=== PATIENT | female | born 1950 | race Caucasian/White ===

== ENCOUNTER 2017-11-27 00:06 | Inpatient (IN) | payer MEDICARE, OTHER ==
--- NOTE | 2017-11-26 12:24 | LEVENE H&P ---
DATE OF ADMISSION: November 27, 2017 IDENTIFICATION/CHIEF COMPLAINT The patient is a 67]-year-old woman with a chief complaint of right hip pain. HISTORY OF PRESENT ILLNESS Lizet has a longstanding history of right hip arthritis, progressively painful and debilitating and refractor to conservative care. Surgery is indicated to relieve symptoms after failure of nonoperative measures. PAST MEDICAL HISTORY 1. Hypothyroidism. 2. Hypertension. 3. Mild COPD, requiring nighttime oxygen use. PAST SURGICAL HISTORY 1. Left knee replacement. 2. Eye surgery. ALLERGIES PENICILLIN (causing severe hives and breathing difficulty) and SULFA DRUGS. CURRENT MEDICATIONS 1. Levothyroxine 75 micrograms every day. 2. Lisinopril 40 mg every day. 3. Timolol drops morning and afternoon. 4. Lumigan drops at bedtime. FAMILY HISTORY Father, brother and sister with heart disease. Mother, sister and aunts with cancer. SOCIAL HISTORY Negative for tobacco and alcohol use. REVIEW OF SYSTEMS Negative. PHYSICAL EXAMINATION GENERAL: This is a healthy female. HEENT: Normocephalic, atraumatic. NECK: Supple. LUNGS: Clear. HEART: Regular. ABDOMEN: Soft. ORTHOPEDIC EXAMINATION The right hip is stiff with limits of rotation. She has normal hip girdle strength. Skin envelope is intact. Calves are nontender. Neurovascular function is intact. RADIOGRAPHS Radiographs demonstrate end-stage hip arthritis. ASSESSMENT Right hip end-stage degenerative joint disease (DJD), progressively painful and debilitating, refractory to conservative care. PLAN Per patient's request, we will proceed with total hip arthroplasty. The nature of the procedure, the risks, benefits, the anticipated rehabilitative course were reviewed. Risks of the procedure include but are not limited to , major medical or anesthetic complication, infection, neurovascular injury, blood transfusion, stiffness, scarring, fracture, tendon rupture, leg length discrepancy, instability, implant loosening, migration or failure, need for additional surgery and other unforeseen. She understands and wishes to proceed. A signed permit is placed in the chart. No guarantees are given or implied. OBED
[2017-11-26 15:40] LABS: PLATELET COUNT, AUTOMATED 224 K/uL (150-450)
[2017-11-26 15:49] LABS: INR 0.95
[2017-11-27] VITALS (16 sets, daily range): BP systolic 99–150; BP diastolic 52–109
[~2017-11-27] VITALS: Ht 167.6 cm; Wt 103.4 kg
[~2017-11-27 00:06] MED LIST: BIMA2.5D5 OP; LEVO75TA73 PO; LISI-374 PO; TIMO5DRO3 OP
[2017-11-27] MEDS ORDERED: ACETAMINOPHEN 500 MG TAB PO ONE (06:15)
[2017-11-27] MEDS ORDERED: FAMOTIDINE 20 MG TAB PO ONE (06:15)
[2017-11-27] MEDS ORDERED: NORMOSOL R SOLN(*) 1000 ML BAG 1,000 ML IV PRN ×2 (06:15→09:50)
[2017-11-27] MEDS ORDERED: LIDOCAINE/SOD BICARB 8.4% SYR ID ONE (06:15)
[2017-11-27] MEDS ORDERED: cloNIDine EPIDUR INJ 100MCG/ML 40 MCG, ROPIVACAINE 0.5% 20 ML VIAL 25 ML, EPINEPHrine H... INJ ONE (06:15)
[2017-11-27] MEDS ORDERED: CLINDAMYCIN(*) 900 MG/NS 50 ML 50 ML IVPB ONE (06:15)
[2017-11-27] MEDS ORDERED: TRANEXAMIC AC 1000 MG/10ML SDV 1,000 MG in DEXTROSE 5% 50 ML BAG 50 ML IV ONE (06:15)
[2017-11-27] MEDS ORDERED: MIDAZOLAM 2 MG/2 ML VIAL IVP PRN (06:15)
[2017-11-27] MEDS ORDERED: PREGABALIN 150 MG CAPSULE PO ONE (06:15)
[2017-11-27] MEDS ORDERED: fentaNYL CITR 100 MCG/2 ML AMP ONE (06:45)
[2017-11-27] MEDS ORDERED: PROPOFOL EMUL(*) 10MG/ML 20 ML 80 ML ONE (06:46)
[2017-11-27] MEDS ORDERED: ONDANSETRON 4 MG/2 ML VIAL ONE (06:46)
[2017-11-27] MEDS ORDERED: DEXAMETHASONE SOD PHOS 10MG/ML ONE (06:46)
[2017-11-27] MEDS ORDERED: LIDOCAINE MPF 1% 5 ML VIAL ONE (06:46)
[2017-11-27] MEDS ORDERED: LIDOCAINE 2% JELLY 5 ML TUBE ONE (07:01)
[2017-11-27] MEDS ORDERED: KETAMINE HCL 200 MG/20 ML MDV ONE (07:02)
[2017-11-27] MEDS ORDERED: NS 0.9% 20 ML SDV 20 ML ONE (07:32)
[2017-11-27] MEDS ORDERED: PROPOFOL EMUL(*) 10MG/ML 20 ML 60 ML ONE (07:49)
[2017-11-27] MEDS ORDERED: VASOPRESSIN 20 UNIT/ML VIAL ONE (08:13)
[2017-11-27] MEDS ORDERED: VANCOMYCIN 1 GM VIAL ONE (08:30)
[2017-11-27] MEDS ORDERED: PROMETHAZINE 25 MG/ML 1 ML AMP IVP PRN (09:50)
[2017-11-27] MEDS ORDERED: BENZOCAINE/MENTHOL 1 EACH LOZG PO PRN (09:50)
[2017-11-27] MEDS ORDERED: MAGNESIUM HYDROXIDE* 30ML UDCP PO PRN (09:50)
[2017-11-27] MEDS ORDERED: ACETAMINOPHEN 325 MG TAB PO PRN (09:50)
[2017-11-27] MEDS ORDERED: BISACODYL 10 MG SUPP PR PRN (09:50)
[2017-11-27] MEDS ORDERED: diphenhydrAMINE 25 MG CAP PO PRN (09:50)
[2017-11-27] MEDS ORDERED: diphenhydrAMINE 50 MG/ML VIAL IVP PRN (09:50)
[2017-11-27] MEDS ORDERED: FLUSH 10 ML SYR IVP PRN (09:50)
[2017-11-27] MEDS ORDERED: ZOLPIDEM TARTRATE 5 MG TAB PO PRN (09:50)
--- NOTE | 2017-11-27 11:28 | Hospitalist Consultation ---
History of Present Illness Requesting Physician Dr. Villegas Reason for Consult Hypertension, Hypothyroidism Chief Complaint s/p right total hip replacement History of Present Illness She was admitted s/p right total hip replacement. It is reported the surgery went well and without complication. History Problems: (1) COPD (chronic obstructive pulmonary disease) Status: Chronic (2) Hypertension Status: Chronic (3) Hypothyroidism Status: Chronic (4) Glaucoma Status: Chronic Home Meds Reported Medications Bimatoprost (LUMIGAN) 2.5 Ml Drops, 1 GTT OP HS 11/20/17 Timolol (BETIMOL) 5 Ml Drops, 1 GTT OP BID 11/20/17 Levothyroxine Sodium (LEVOTHYROXINE SODIUM) 75 Mcg Tablet, 75 MCG PO QDAY, TAB 11/20/17 Lisinopril (LISINOPRIL) 40 Mg Tablet, 40 MG PO QDAY, TAB 11/20/17 Allergies: Coded Allergies: Penicillins (Verified Allergy, Intermediate, HIVES, 11/20/17) Sulfa (Sulfonamide Antibiotics) (Verified Allergy, Intermediate, HIVES, 02/28) Patient History: FH: breast cancer MOTHER BROTHER OR SISTER FH: heart disease FATHER BROTHER OR SISTER BROTHER OR SISTER FH: ovarian cancer BROTHER OR SISTER Hx Smoking: Yes (SMOKED 1/2 PPD FOR 20YRS) Smoking Status: Former Smoker When Quit Tobacco?: 1989 Caffeine Intake: Tea Caffeine/Cups Per Day: 1.5 CUPS/DAY Hx Alcohol Use: No Hx Substance Use Disorder: No Social Drug Use: Never Review of Systems All Systems Reviewed/Normal: Yes, Except as Noted Exam Vital Signs Vital Signs Date Time Temp Pulse Resp B/P (MAP) Pulse Ox O2 Delivery O2 Flow Rate FiO2 11/27/17 11:06 96 Nasal Cannula 2.0 11/27/17 10:49 97.6 16 104/81 (89) 11/27/17 10:45 66 General Appearance: Alert, Awake, No Acute Distress, Afebrile Neuro: No Gross deficits Cardiovascular: Regular Rate and Rhythm Respiratory: No Respiratory Distress, Clear to Auscultation Extremities: Perfused Psych: Alert & Oriented X3, Appropriate Mood & Affect Medical Decision Making Data Points Result Diagram: 11/26/17 1510 Assessment and Plan Problems: (1) Status post total hip replacement, right Status: Acute Assessment & Plan: Followed by Dr. Levene. She will be placed on Aspirin 325mg daily for DVT prophylaxis. She has no history of DVT or PE. (2) Hypertension Status: Chronic Assessment & Plan: She is on chronic treatment with Lisinopril. This was restarted with hold parameters. (3) Hypothyroidism Status: Chronic Assessment & Plan: She is on chronic treatment with Levothyroxine. (4) COPD (chronic obstructive pulmonary disease) Status: Chronic Assessment & Plan: She wears oxygen at night. She does not require inhalers. (5) Glaucoma Status: Chronic Assessment & Plan: She uses Timolol and Lumigan daily. Venous Thromboembolism Antithrombotics Is Pt On Any Antithrombotics?: No CORNELL GONZALEZP Nov 27, 2017 11:28
--- NOTE | 2017-11-27 11:28 | RADIOLOGY IMAGING REPORT ---
FACILITY: [facility] PATIENT NAME: Antoinette yWnne : 1950 MR: [id number] V: [id number] EXAM DATE: ORDERING PHYSICIAN: GLENN SORIA TECHNOLOGIST: Location: [facility] Patient: Antoinette Wynne : 1950 Visit/Account:[id number] Date of Sevice: 11/27/2017 PELVIS History: Pelvic pain. Comparison study: None. Findings: There is diffuse osteopenia. There has been a prior right total hip replacement. The left hip shows no findings of a fracture. There are only minimal findings of joint space narrowi ng. There are minimal degenerative changes involve the sacroiliac joints and pubic symphysis. IMPRESSION: 1. Osteopenia without fracture. 2. Status post right total hip replacement. 3. Unremarkable left hip with only minimal findings of joint space narrowing. Report Dictated By: Marbin Burt MD at 11/27/2017 11:24 AM Report E-Signed By: Marbin Burt MD at 11/27/2017 11:24 AM WSN:[email or web address]
[2017-11-27] MEDS: APAP/HYDROCODONE 325/7.5 TAB PO PRN ×2 (14:14→21:07)
[2017-11-27] MEDS: CLINDAMYCIN(*) 900 MG/NS 50 ML 50 ML IVPB SCH ×2 (14:34→23:02)
--- NOTE | 2017-11-27 14:38 | OPERATIVE REPORT 1 ---
EVENT DATE: November 27, 2017 SURGEON: Jose Cruz Villegas MD ANESTHESIOLOGIST: Tom Frias MD ANESTHESIA: General plus spinal. ENROBER TENDER: IZA Alcantar PREOPERATIVE DIAGNOSIS Right hip degenerative joint disease. POSTOPERATIVE DIAGNOSIS Right hip degenerative joint disease. PROCEDURE PERFORMED Right total hip arthroplasty. ESTIMATED BLOOD LOSS 400 mL DRAINS None. SPECIMENS None. COMPLICATIONS None apparent. IMPLANTS USED Biomonitor system with a Trident PSL cluster acetabular shell 52 mm, Trident X3 zero-degree poly insert to accommodate a 36 mm head, a SecurFit Max size 9, 132- degree neck angle hip stem, and a Biolox Delta Ceramic C-Taper femoral head - 2.5 neck length. INDICATIONS Antoinette has intractable pain related to end-stage hip arthritis. Surgery is indicated to relieve symptoms after failure of nonoperative measures. DESCRIPTION OF PROCEDURE Patient was taken to the operating room, placed supine on the operating table. General anesthesia induced after spinal block is administered by the anesthesiologist. Antibiotics and TXA are administered IV. Patient is positioned in the left lateral decubitus on a well-padded pegboard. Pelvis is secured in a vertical position. All bony prominences and superficial nerves are well padded. The right hip girdle and lower extremity are prepped and draped in the usual sterile fashion for hip arthroplasty. A standard posterolateral approach is made, carried down through the skin and subcutaneous tissue down to the deep fascia. Fascia is incised over the tip of the trochanter, extended distally in line with the femur, proximally in line with the harrison fibers. Harrison fibers are split bluntly. Trochanteric bursa is excised. Interval between the abductor and external rotator is identified. Abductor mechanism protected with a blunt Hohmann. An L capsulotomy/tenotomy is made with the horizontal limb above the piriformis, releasing the external rotators and capsule off the posterior aspect of the femur. These are tagged for later anatomic reattachment. The femoral head is dislocated. End-stage arthritic change is noted. A 1.5 cm neck cut is made consistent with preoperative templating. Femoral head is extracted. Femur is translocated anteriorly. Yaneli-acetabular retractors are placed with the tips down on bone. Labrum and pulvinar are excised. A 44 mm reamer is used to medialize through the true medial wall of the acetabulum. This is expanded in 2 mm increments up to 52 where nice rim contact is obtained. Trial is performed and fits well. Surface is lavaged, and the actual shell is impacted in approximately 45 degrees of lateral opening and 15 to 20 degrees of anteversion using the extracorporeal guide, internal bony landmarks, and transverse acetabular ligament to guide socket placement. Rock-solid fixation is achieved. No adjuvant fixation is felt to be needed. The shell is lavaged, and the liner is impacted into the shell. Attention is turned to femoral preparation. The superior neck is resected with a cookie cutter. A Charterrnaceey awl finds the canal. Reaming is performed up to 9 where good endosteal contact is obtained. Broaching starts with 7 and works up to 9, taking care to lateralize to avoid varus following the [place] anteversion of the calcar to about 12 to 15 degrees. The 9 broach has solid fit and fill. Trial reduction is performed. Good episcopal of the limb length and stability are achievable. The broach is extracted. Surface is lavaged. The actual stem is impacted and sits at the same height. Trial reduction performed with various neck lengths. The -2.5 is felt to be optimal for episcopal of the limb length and stability. Camp taper is lavaged and dried, and the Biolox head is impacted onto the Camp taper. Joint is reduced. The tenotomy/capsulotomy is repaired anatomically through drill holes through the posterolateral femur with #2 Vicryl. Deep fascia closed distally with #2 Ethibond, proximally with #2 Vicryl. Subcutaneous tissue is lavaged, hemostasis assured. Derm is closed with 3-0 Vicryl, skin with surgical shayla, Xeroform and 4 x 4's in a dry, sterile dressing, and a hip wrap. Patient is rolled supine. Abduction pillow is placed. She is awakened from anesthesia and taken to the recovery room in stable condition having tolerated the procedure well. Plan is for standard [facility] rehab protocol, posterior hip precautions, weightbearing as tolerated. [facility]
[2017-11-27] MEDS: DIAZEPAM 5 MG TAB PO PRN (15:52)
[2017-11-27] MEDS: IBUPROFEN 800 MG TAB PO SCH (18:45)
[2017-11-27] MEDS: LISINOPRIL 20 MG TAB PO SCH (20:33)
[2017-11-28] MEDS: IBUPROFEN 800 MG TAB PO SCH ×3 (01:00→17:28)
[2017-11-28] MEDS: DIAZEPAM 5 MG TAB PO PRN ×2 (03:14→15:38)
[2017-11-28 03:17] VITALS: BP 109/72
[2017-11-28] MEDS: LEVOTHYROXINE SOD 0.075 MG TAB PO SCH (06:15)
[2017-11-28] MEDS: APAP/HYDROCODONE 325/7.5 TAB PO PRN ×4 (06:15→22:42)
[2017-11-28] MEDS: CLINDAMYCIN(*) 900 MG/NS 50 ML 50 ML IVPB SCH (06:16)
[2017-11-28 08:13] VITALS: BP 110/76
[2017-11-28] MEDS: ASPIRIN 325 MG TAB PO SCH (10:09)
[2017-11-28 10:18] VITALS: Ht 167.6 cm; Wt 103.4 kg
--- NOTE | 2017-11-28 11:58 | Hospitalist Progress Note ---
Subjective Progress Notes Subjective She was admitted s/p hip replacement. She had no acute events overnight. Patient Complains of: Cardiovascular: No: Chest Pain Respiratory: No: Shortness of Breath Physical Exam Vital Signs Date Time Temp Pulse Resp B/P (MAP) Pulse Ox O2 Delivery O2 Flow Rate FiO2 11/28/17 08:13 97.7 63 14 110/76 (87) 94 Nasal Cannula 1.0 Intake and Output 11/29/17 07:00 Intake Total 240 ml Balance 240 ml Intake Oral 240 ml General Appearance: Alert, Awake, No Acute Distress, Afebrile Neuro: No Gross deficits Cardiovascular: Regular Rate and Rhythm Respiratory: No Respiratory Distress, Clear to Auscultation Psych: Alert & Oriented X3, Appropriate Mood & Affect Result Diagram: 11/26/17 1510 Assessment and Plan Problems: (1) Status post total hip replacement, right Status: Acute Assessment & Plan: Followed by Dr. Villegas. She will be placed on Aspirin 325mg daily for DVT prophylaxis. She has no history of DVT or PE. (2) Hypertension Status: Chronic Assessment & Plan: She is on chronic treatment with Lisinopril. This was restarted with hold parameters. (3) Hypothyroidism Status: Chronic Assessment & Plan: She is on chronic treatment with Levothyroxine. (4) COPD (chronic obstructive pulmonary disease) Status: Chronic Assessment & Plan: She wears oxygen at night. She does not require inhalers. (5) Glaucoma Status: Chronic Assessment & Plan: She uses Timolol and Lumigan daily. Exam Sepsis Risk: No Definite Risk CORNELL GONZALEZ [facility] Nov 28, 2017 11:58
[2017-11-28 15:35] VITALS: BP 99/56
[2017-11-28 19:29] VITALS: BP 100/63
[2017-11-28] MEDS: LISINOPRIL 20 MG TAB PO SCH (21:00)
[2017-11-28 22:36] VITALS: BP 107/80
[2017-11-29] MEDS: IBUPROFEN 800 MG TAB PO SCH ×2 (01:07→09:34)
[2017-11-29 02:33] VITALS: BP 107/73
[2017-11-29] MEDS: APAP/HYDROCODONE 325/7.5 TAB PO PRN ×2 (02:39→11:04)
[2017-11-29] MEDS: LEVOTHYROXINE SOD 0.075 MG TAB PO SCH (05:33)
[2017-11-29] MEDS ORDERED: ASPI-757 PO (08:29)
[2017-11-29 09:32] VITALS: BP 113/71
[2017-11-29] MEDS: ASPIRIN 325 MG TAB PO SCH (09:35)
[2017-11-29] MEDS ORDERED: HYDR-4308 PO (09:38)
--- NOTE | 2017-11-29 11:36 | Hospitalist Progress Note ---
Subjective Progress Notes Subjective She has no concerns this morning. She had no acute events overnight. Patient Complains of: Cardiovascular: No: Chest Pain Respiratory: No: Shortness of Breath Physical Exam Vital Signs Date Time Temp Pulse Resp B/P (MAP) Pulse Ox O2 Delivery O2 Flow Rate FiO2 11/29/17 10:00 93 Nasal Cannula 1.0 11/29/17 09:32 97.9 74 113/71 (85) 11/29/17 02:33 16 Intake and Output 11/30/17 00:59 Intake Total 200 ml Balance 200 ml Intake Oral 200 ml # Voids 2 General Appearance: Alert, Awake, No Acute Distress Neuro: No Gross deficits Cardiovascular: Regular Rate and Rhythm Respiratory: No Respiratory Distress, Clear to Auscultation Psych: Alert & Oriented X3, Appropriate Mood & Affect Result Diagram: 11/26/17 1510 Assessment and Plan Problems: (1) Status post total hip replacement, right Status: Acute Assessment & Plan: Followed by Dr. Villegas. She will be placed on Aspirin 325mg daily for DVT prophylaxis. She has no history of DVT or PE. (2) Hypertension Status: Chronic Assessment & Plan: She is on chronic treatment with Lisinopril. This was restarted with hold parameters. (3) Hypothyroidism Status: Chronic Assessment & Plan: She is on chronic treatment with Levothyroxine. (4) COPD (chronic obstructive pulmonary disease) Status: Chronic Assessment & Plan: She wears oxygen at night. She does not require inhalers. (5) Glaucoma Status: Chronic Assessment & Plan: She uses Timolol and Lumigan daily. Exam Sepsis Risk: No Definite Risk CORNELL GONZALEZ [employer] Nov 29, 2017 11:36
== END 2017-11-29 11:24 | disposition home or self-care (01) | DRG 470 ==
LOC: OR 00:06 → MED 10:45
PROVIDERS: ADMIT Orthopaedic Surgery; ATTEND Orthopaedic Surgery
PROC: 0SR904A Replacement of Right Hip Joint with Ceramic on Polyethylene Synthetic Substitute, Uncemented, Open Approach (ICD-10-PCS; principal; 2017-11-27 07:15)
DX: M16.11 Unilateral primary osteoarthritis, right hip (principal); I10 Essential (primary) hypertension; Z96.642 Presence of left artificial hip joint; G47.33 Obstructive sleep apnea (adult) (pediatric); Z88.0 Allergy status to penicillin; E03.9 Hypothyroidism, unspecified; J44.9 Chronic obstructive pulmonary disease, unspecified; H40.9 Unspecified glaucoma; Z99.81 Dependence on supplemental oxygen; Z88.2 Allergy status to sulfonamides; Z87.891 Personal history of nicotine dependence
CPT/HCPCS: 36415; 72170; 85025; 85610; 86850; 86900; 86901; 97161; 97165; C1776; J1100; J2001; J2250; J2405; J2550; J2704; J3010; J3370; J3490; J7050; J7060

== ENCOUNTER 2018-04-30 01:26 | Inpatient (IN) | payer MEDICARE, OTHER ==
--- NOTE | 2018-04-29 12:20 | LEVENE H&P ---
DATE OF ADMISSION: April 30, 2018 IDENTIFICATION/CHIEF COMPLAINT The patient is a 67-year-old woman with a chief complaint of right knee pain. HISTORY OF PRESENT ILLNESS The patient has a long standing history of knee arthritis, progressively painful and debilitating, refractory to conservative care. Surgery is indicated to relieve pain after failure of nonoperative measures. PAST MEDICAL HISTORY 1. Hypertension well controlled on medication. 2. Hypothyroidism. 3. COPD with night time oxygen dependence. PAST SURGICAL HISTORY 1. Left knee replacement. 2. Right hip replacement. ALLERGIES SULFA PENICILLIN both lead to hives. She has no latex allergy. CURRENT MEDICATIONS 1. Levothyroxine 70 mcg p.o. q day. 2. Lisinopril 40 mg p.o. q nightly. 3. Timolol t.i.d. eye drops. 4. Lumigan 1 before bed eye drops. FAMILY HISTORY Non-contributory. SOCIAL HISTORY Negative for tobacco and alcohol use. REVIEW OF SYSTEMS Notable for glaucoma PHYSICAL EXAMINATION GENERAL: This is a healthy female. HEENT: Normocephalic, atraumatic. NECK: Supple. LUNGS: Clear to auscultation bilaterally. HEART: Regular rate and rhythm. ABDOMEN: Soft. ORTHOPEDIC EXAMINATION The right knee has crepitus, effusion is present. She is stiff at the end range. Extensor function is good. Knee is grossly stable. RADIOGRAPHS Demonstrate endstage knee arthritis. ASSESSMENT Right knee degenerative joint disease refractory for conservative. PLAN Per patient request, we are going to proceed with total knee arthroplasty. The risks, benefits of nonoperative alternatives reviewed. Risks include but are not limited to , major medical or anesthetic complication, infection, neurovascular injury, blood transfusion, stiffness, scarring, fracture, tendon rupture, instability, implant loosening, migration or failure, persistent or recurrent pain or symptoms, need for additional surgery and other unforeseen. She understands and wishes to proceed. A signed permit is placed in the chart. No guarantees are given or implied. OBED
[2018-04-29 13:58] LABS: INR 0.98
[~2018-04-30] VITALS: Ht 165.1 cm; Wt 102.1 kg
[2018-04-30] VITALS (14 sets, daily range): BP systolic 92–153; BP diastolic 69–91
[~2018-04-30 01:26] MED LIST changes: +ASPI-757 PO; +ASPI81TA94 PO; +HYDR-654 PO
[2018-04-30] MEDS: NORMOSOL R SOLN(*) 1000 ML BAG 1,000 ML IV PRN ×2 (10:05→11:54)
[2018-04-30] MEDS ORDERED: APREPITANT 40 MG CAP PO ONE (10:35)
[2018-04-30] MEDS ORDERED: MIDAZOLAM 2 MG/2 ML VIAL IVP PRN (11:30)
[2018-04-30] MEDS ORDERED: CLINDAMYCIN(*) 900 MG/NS 50 ML 50 ML IVPB ONE (11:30)
[2018-04-30] MEDS ORDERED: FAMOTIDINE 20 MG TAB PO ONE (11:30)
[2018-04-30] MEDS ORDERED: LIDOCAINE/SOD BICARB 8.4% SYR ID ONE (11:30)
[2018-04-30] MEDS ORDERED: PREGABALIN 150 MG CAPSULE PO ONE (11:30)
[2018-04-30] MEDS ORDERED: ACETAMINOPHEN 500 MG TAB PO ONE (11:30)
[2018-04-30] MEDS ORDERED: fentaNYL CITR 100 MCG/2 ML AMP ONE (11:38)
[2018-04-30] MEDS ORDERED: ONDANSETRON 4 MG/2 ML VIAL ONE (11:39)
[2018-04-30] MEDS ORDERED: DEXAMETHASONE SOD PHOS 10MG/ML ONE (11:39)
[2018-04-30] MEDS ORDERED: PROPOFOL EMUL(*) 10MG/ML 20 ML 20 ML ONE (11:39)
[2018-04-30] MEDS ORDERED: LIDOCAINE MPF 1% 5 ML VIAL ONE (11:39)
[2018-04-30] MEDS ORDERED: KETAMINE HCL 200 MG/20 ML MDV ONE (11:41)
[2018-04-30] MEDS ORDERED: PROPOFOL(*)1000 MG/100 ML VIAL 100 ML ONE (12:08)
[2018-04-30] MEDS ORDERED: TRANEXAMIC AC 1000 MG/10ML SDV 1,000 MG in DEXTROSE 5% 50 ML BAG 50 ML IV ONE (12:30)
[2018-04-30] MEDS ORDERED: ROPIVACAINE/EPI/CLONIDINE/KET 50 ML SYRINGE INJ ONE (12:30)
[2018-04-30] MEDS ORDERED: VANCOMYCIN 1 GM VIAL ONE ×2 (12:49→13:38)
[2018-04-30] MEDS ORDERED: BISACODYL 10 MG SUPP PR PRN (16:00)
[2018-04-30] MEDS ORDERED: BENZOCAINE/MENTHOL 1 EACH LOZG PO PRN (16:00)
[2018-04-30] MEDS ORDERED: diphenhydrAMINE 50 MG/ML VIAL IVP PRN (16:00)
[2018-04-30] MEDS ORDERED: NORMOSOL R SOLN(*) 1000 ML BAG 1,000 ML IV PRN (16:00)
[2018-04-30] MEDS ORDERED: ACETAMINOPHEN 325 MG TAB PO PRN (16:00)
[2018-04-30] MEDS ORDERED: FLUSH 10 ML SYR IVP PRN (16:00)
[2018-04-30] MEDS ORDERED: ZOLPIDEM TARTRATE 5 MG TAB PO PRN (16:00)
[2018-04-30] MEDS ORDERED: PROMETHAZINE 25 MG/ML 1 ML AMP IVP PRN (16:00)
[2018-04-30] MEDS ORDERED: MAGNESIUM HYDROXIDE* 30ML UDCP PO PRN (16:00)
[2018-04-30] MEDS ORDERED: diphenhydrAMINE 25 MG CAP PO PRN (16:00)
[2018-04-30] MEDS: APAP/HYDROCODONE 325/7.5 TAB PO PRN ×2 (17:00→21:26)
--- NOTE | 2018-04-30 17:00 | RADIOLOGY IMAGING REPORT ---
[place] [facility] [place] Antoinette Wynne : 1950 MR: [id number] V: [id number] EXAM DATE: ORDERING PHYSICIAN: GLENN SORIA TECHNOLOGIST: [place] [facility] [place] Antoinette Wynne : 1950 Visit/Account:[id number] Date of Sevice: 04/30/2018 Exam type: KNEE LIMITED RIGHT History: POST OP PLACEMENT Comparison: None. Findings: Two views the right knee demonstrate a right knee arthroplasty in good anatomic alignment. Soft tiss ue gas and skin shayla project over the anterior aspect this postoperative knee IMPRESSION: 1. As above Report Dictated By: Hortencia Jo MD at 04/30/2018 4:51 PM Report E-Signed By: Hortencia Jo MD at 04/30/2018 4:56 PM WSN:[email or web address]
--- NOTE | 2018-04-30 17:01 | Hospitalist Consultation ---
History of Present Illness Requesting Physician Dr. Villegas Reason for Consult Medical Management Chief Complaint s/p right knee replacement History of Present Illness She was admitted s/p right knee replacement. It is reported the surgery went well and without complication. History Problems: (1) COPD (chronic obstructive pulmonary disease) Status: Chronic (2) Hypothyroidism Status: Chronic (3) Glaucoma Status: Chronic (4) Hypertension Status: Chronic Home Meds Reported Medications Aspirin (ASPIRIN) 81 Mg Tab.chew, 81 MG PO QDAY, TAB.CHEW 04/25/18 Bimatoprost (LUMIGAN) 2.5 Ml Drops, 1 GTT OP HS 11/20/17 Timolol (BETIMOL) 5 Ml Drops, 1 GTT OP BID 11/20/17 Levothyroxine Sodium (LEVOTHYROXINE SODIUM) 75 Mcg Tablet, 75 MCG PO QDAY, TAB 11/20/17 Lisinopril (LISINOPRIL) 40 Mg Tablet, 40 MG PO QDAY, TAB 11/20/17 Discontinued Reported Medications Hydrocodone Bit/Acetaminophen (NORCO 7.5-325 TABLET) 1 Each Tablet, 1 EACH PO Q4H PRN for PAIN, #50 11/29/17 Discontinued Scripts Aspirin (ASPIRIN) 325 Mg Tablet, 325 MG PO DAILY, #30 TAB Prov:CORNELL GONZALEZ Adrienne FOREST ECOLOGY PROFESSOR 11/29/17 Allergies: Coded Allergies: Penicillins (Verified Allergy, Intermediate, HIVES, 04/25/18) Sulfa (Sulfonamide Antibiotics) (Verified Allergy, Intermediate, HIVES, 04/25/18) Patient History: FH: breast cancer MOTHER BROTHER OR SISTER FH: heart disease FATHER BROTHER OR SISTER BROTHER OR SISTER FH: ovarian cancer BROTHER OR SISTER Hx Smoking: Yes (SMOKED 1/2 PPD FOR 20YRS) Smoking Status: Former Smoker When Quit Tobacco?: 1989 Caffeine Intake: Coffee, Tea, Soda Caffeine/Cups Per Day: 1.5 CUPS/DAY Hx Alcohol Use: No Hx Substance Use Disorder: No Social Drug Use: Never Review of Systems All Systems Reviewed/Normal: Yes, Except as Noted Exam Vital Signs Vital Signs Date Time Temp Pulse Resp B/P (MAP) Pulse Ox O2 Delivery O2 Flow Rate FiO2 04/30/18 16:00 58 12 98 04/30/18 11:00 97.8 153/91 (111) Room Air General Appearance: Alert, Awake, No Acute Distress, Afebrile Neuro: No Gross deficits Cardiovascular: Regular Rate and Rhythm Respiratory: No Respiratory Distress, Clear to Auscultation Psych: Alert & Oriented X3, Appropriate Mood & Affect Assessment and Plan Problems: (1) Status post right knee replacement Status: Acute Assessment & Plan: She will be placed on Aspirin for DVT prophylaxis. She has no history of DVT or PE. (2) Hypertension Status: Chronic Assessment & Plan: She is on chronic treatment with Lisinopril. This has been restarted with hold parameters. (3) Hypothyroidism Status: Chronic Assessment & Plan: She is on chronic treatment with Levothyroxine. (4) COPD (chronic obstructive pulmonary disease) Status: Chronic Assessment & Plan: She wears oxygen at night. (5) Glaucoma Status: Chronic Assessment & Plan: She is on chronic treatment with Timolol and Lumigan daily. Venous Thromboembolism Antithrombotics Is Pt On Any Antithrombotics?: No Problem Qualifiers (1) Hypertension: Hypertension type: essential hypertension Qualified Codes: I10 - Essential (primary) hypertension CORNELL GONZALEZ FOREST ECOLOGY PROFESSOR Apr 30, 2018 17:01
--- NOTE | 2018-04-30 17:57 | OPERATIVE REPORT 1 ---
EVENT DATE: April 30, 2018 SURGEON: Jose Cruz Villegas MD ANESTHESIOLOGIST: Tom Frias MD ANESTHESIA: General plus spinal. LANGUAGE TEACHER: CHRISTIANO Alcantar, CANCER GENETICS ASSISTANT PREOPERATIVE DIAGNOSIS Right knee degenerative joint disease. POSTOPERATIVE DIAGNOSIS Right knee degenerative joint disease. PROCEDURE PERFORMED Right total knee arthroplasty. ESTIMATED BLOOD LOSS Minimal. DRAINS None. SPECIMENS None. COMPLICATIONS None. TOURNIQUET TIME 44 minutes. IMPLANTS USED Shadia Triathlon knee system, a 3 right PS femur, 4 standard tibial baseplate, a 31 mm universal symmetric all polyethylene patella button, 11 mm PS tibial tray, polyethylene X3. INDICATIONS Antoinette is a 67-year-old with intractable pain and disability related to end- stage knee arthritis. Surgery is indicated to relieve symptoms after failure of nonoperative measures. DESCRIPTION OF PROCEDURE The patient was taken to the operating room and placed supine on the operating table. A spinal block was administered by the anesthesiologist. General anesthesia was induced. Antibiotics and TXA were administered IV. The right lower extremity was prepped and draped in the usual sterile fashion for knee arthroplasty. The limb was exsanguinated with an Esmarch bandage. The tourniquet was inflated to 275 mmHg. A midline longitudinal incision was made and carried down through the skin and subcutaneous tissue to the extensor mechanism. A full-thickness flap was developed far enough medially to allow medial parapatellar arthrotomy to be performed. The patella was everted. The knee was brought into a flexed position. The fat pad, anterior horns of the menisci and cruciate ligaments were debrided. Subperiosteal medial release was initiated in titrated fashion to balance the knee. A step drill was used to enter the distal femur. A 10-inch long alignment guide was used to engage the isthmus. The cut was set for 5 degrees of valgus relative to anatomic axis. A 10 mm resection block was applied and pinned. Cut was made with an oscillating saw. The AP sizing guide was applied to the distal femoral cut and positioned for 3 degrees of external rotation over the posterior condyles. A size 3 was optimal without risk of notching. The four-in-one cutting block was applied. Anterior, posterior, posterior chamfer and anterior chamfer cuts were made respectively. A PS block was applied and centered mediolateral and the bone was resected from the box. The trial femur has nice fit. Attention was turned to tibial preparation. The extramedullary guide was applied and positioned for varus, valgus, posterior slope and rotation. This was set to resect 9 mm from the relatively intact lateral tibial plateau and dropped down 1 to 2 mm to ensure an adequate cut. The block was pinned. Alignment check was made and then cuts made with an oscillating saw. After osteophyte removal and removal of posterior spurs, gaps were balanced and symmetric with no additional releases required. The size 4 baseplate provides optimum bone coverage without soft tissue overhang. This was inserted along with a trial liner and trial femur and the knee was brought to extension. The patella was taken from a starting thickness of 22 to a residual of 14 with a patellar clamp and oscillating saw. A 31 provides optimal bony coverage without soft tissue overhang. The lug holes were drilled. The patella tracts nicely with a no-touch technique. Final tibial preparation consisted of ensuring appropriate rotational and translational position of the component. The box was reamed and the fin was punched. Surfaces were lavaged. A mix of polymethylmethacrylate was made and the components were cemented in a single stage. When the cement was fully polymerized, the tourniquet was deflated and hemostasis was assured. The wounds were copiously lavaged to remove all loose debris. The 11 trial liner fits ideally. The knee drops to full extension without hyperextension for optimal soft tissue tension and stability. The tray was lavaged and dried and the actual liner was locked into the baseplate. The joint was reduced and the arthrotomy was closed in flexion with #2 Ethibond, subcutaneous tissue with 3-0 Vicryl and the skin with surgical shayla. Xeroform was applied followed by a dry, sterile dressing and a compression wrap. The patient was awakened from the anesthesia and taken to the recovery room in stable condition, having tolerated the procedure well. Plan is for standard TKA rehab protocol. [facility]
[2018-04-30] MEDS: CLINDAMYCIN 900 MG/D5W 50 ML 50 ML IVPB SCH (21:26)
[2018-04-30] MEDS: TIMOLOL MALEATE OP SCH (21:26)
[2018-04-30] MEDS: BIMATOPROST 2.5 ML BTL 2.5 ML BTL OP SCH (21:26)
[2018-04-30] MEDS: IBUPROFEN 800 MG TAB PO SCH (21:26)
[2018-05-01] VITALS (11 sets, daily range): BP systolic 88–122; BP diastolic 51–78; Ht 165.1 cm; Wt 102.1 kg
[2018-05-01] MEDS: DIAZEPAM 5 MG TAB PO PRN ×2 (00:02→07:56)
[2018-05-01] MEDS: APAP/HYDROCODONE 325/7.5 TAB PO PRN ×4 (00:41→20:29)
[2018-05-01] MEDS: CLINDAMYCIN 900 MG/D5W 50 ML 50 ML IVPB SCH ×2 (05:30→13:38)
[2018-05-01] MEDS: LEVOTHYROXINE SOD 0.075 MG TAB PO SCH (05:30)
[2018-05-01] MEDS ORDERED: LISINOPRIL 20 MG TAB PO SCH (09:00)
[2018-05-01] MEDS ORDERED: ASPIRIN 325 MG TAB PO SCH (09:00)
[2018-05-01] MEDS: TIMOLOL MALEATE OP SCH ×2 (09:17→20:28)
[2018-05-01] MEDS: IBUPROFEN 800 MG TAB PO SCH ×3 (09:18→20:27)
--- NOTE | 2018-05-01 09:55 | Hospitalist Progress Note ---
Subjective Progress Notes Subjective She has complaints of pain to the surgery site. Otherwise, feels well. She had no acute events overnight. Patient Complains of: Cardiovascular: No: Chest Pain Respiratory: No: Shortness of Breath Musculoskeletal: Pain (right knee) Physical Exam Vital Signs Date Time Temp Pulse Resp B/P (MAP) Pulse Ox O2 Delivery O2 Flow Rate FiO2 05/01/18 07:35 98 Nasal Cannula 2.0 05/01/18 07:35 98.7 60 16 117/78 (91) Intake and Output 05/01/18 06:59 Intake Total 5780 ml Output Total 20 ml Balance 5760 ml Intake Oral 780 ml IV Total 2500 ml Other 2500 ml Output Estimated Blood Loss 20 ml # Voids 2 General Appearance: Alert, Awake, No Acute Distress, Afebrile Neuro: No Gross deficits Cardiovascular: Regular Rate and Rhythm Respiratory: No Respiratory Distress, Clear to Auscultation Psych: Alert & Oriented X3, Appropriate Mood & Affect Assessment and Plan Problems: (1) Status post right knee replacement Status: Acute Assessment & Plan: She will be placed on Aspirin for DVT prophylaxis. She has no history of DVT or PE. (2) Hypertension Status: Chronic Assessment & Plan: She is on chronic treatment with Lisinopril. This has been restarted with hold parameters. (3) Hypothyroidism Status: Chronic Assessment & Plan: She is on chronic treatment with Levothyroxine. (4) COPD (chronic obstructive pulmonary disease) Status: Chronic Assessment & Plan: She wears oxygen at night. (5) Glaucoma Status: Chronic Assessment & Plan: She is on chronic treatment with Timolol and Lumigan daily. Exam Sepsis Risk: No Definite Risk Problem Qualifiers (1) Hypertension: Hypertension type: essential hypertension Qualified Codes: I10 - Essential (primary) hypertension CORNELL GONZALEZ MANNEQUIN DECORATOR May 01, 2018 09:54
[2018-05-01 11:23] LABS: PLATELET COUNT, AUTOMATED 215 K/uL (150-450)
[2018-05-01] MEDS ORDERED: NS(*) 0.9% 500 ML BAG 500 ML IV ONE (12:05)
[2018-05-01] MEDS ORDERED: NS(*) 0.9% 1000 ML BAG 1,000 ML IV ONE (13:25)
--- NOTE | 2018-05-01 14:46 | EKG ---
FACILITY: [facility] PATIENT NAME: SREE TREVIÑO : [id number] MR: [id number] V: [id number] EXAM DATE: ORDERING PHYSICIAN: CORNELL GONZALEZ TECHNOLOGIST: LAVINIA Test Reason : SOB Blood Pressure : / mmHG Vent. Rate : 067 BPM Atrial Rate : 067 BPM P-R Int : 162 ms QRS Dur : 088 ms QT Int : 424 ms P-R-T Axes : -09 042 025 degrees QTc Int : 448 ms Normal sinus rhythm Septal infarct , age undetermined No ST-T abnormalities No previous ECGs available Confirmed by SONU RHODES ([id number]) on 05/01/2018 4:47:26 PM Referred By: CORNELL Confirmed By:SONU RHODES
--- NOTE | 2018-05-01 15:18 | Miscellaneous Provider Note ---
Miscellaneous Provider Note Note She had an episode of chest pressure and shortness of breath, which passed within 10 minutes. She also had complaints of vivid dreams, that she contributed to her OxyContin. Patient did get Troponin and EKG which were normal. She will get a repeat troponin at 2000 tonight. She will continue hydration, and we will stop her OxyContin which could be contributing to her symptoms. We will continue to monitor on Telemetry. CORNELL GONZALEZP May 01, 2018 15:18
[2018-05-01] MEDS: BIMATOPROST 2.5 ML BTL 2.5 ML BTL OP SCH (20:28)
[2018-05-01] MEDS: LISINOPRIL 20 MG TAB PO SCH (20:28)
[2018-05-02] VITALS (8 sets, daily range): BP systolic 90–151; BP diastolic 57–79
[2018-05-02] MEDS: APAP/HYDROCODONE 325/7.5 TAB PO PRN ×4 (00:32→17:20)
[2018-05-02] MEDS: DIAZEPAM 5 MG TAB PO PRN ×2 (01:13→07:38)
[2018-05-02] MEDS: LEVOTHYROXINE SOD 0.075 MG TAB PO SCH (05:52)
[2018-05-02 06:26] LABS: PLATELET COUNT, AUTOMATED 152 K/uL (150-450)
[2018-05-02] MEDS: MORPHINE 2 MG/ML SYR IVP PRN ×2 (06:37→08:46)
[2018-05-02] MEDS ORDERED: CELECOXIB 200 MG CAP PO SCH (08:45)
[2018-05-02] MEDS: TIMOLOL MALEATE OP SCH ×2 (08:47→21:00)
[2018-05-02] MEDS: ASPIRIN 81 MG ENTERIC COATED PO SCH (09:45)
[2018-05-02] MEDS: KETOROLAC 15 MG/ML VIAL IVP SCH ×3 (09:45→20:30)
--- NOTE | 2018-05-02 09:59 | Hospitalist Progress Note ---
Subjective Progress Notes Subjective The patient and her have concerns that her pain is not being controlled this morning. She feels like she is unable to sleep secondary to pain. Her blood pressure has improved today. She has had no further episodes of chest pressure or SOB since yesterday afternoon. Patient Complains of: Cardiovascular: No: Chest Pain Respiratory: No: Shortness of Breath Physical Exam Vital Signs Date Time Temp Pulse Resp B/P (MAP) Pulse Ox O2 Delivery O2 Flow Rate FiO2 05/02/18 07:42 98.1 73 12 108/57 (74) 90 Room Air 05/02/18 02:43 1.0 Intake and Output 05/02/18 00:00 Intake Total 1020 ml Balance 1020 ml Intake Oral 520 ml IV Total 500 ml # Voids 7 General Appearance: Alert, Awake, No Acute Distress, Afebrile Neuro: No Gross deficits Cardiovascular: Regular Rate and Rhythm Respiratory: No Respiratory Distress, Clear to Auscultation GI: Soft and Non-Tender Psych: Alert & Oriented X3, Appropriate Mood & Affect Result Diagram: 05/02/18 0611 05/02/18 0534 Assessment and Plan Problems: (1) Status post right knee replacement Status: Acute Assessment & Plan: She will be placed on Aspirin for DVT prophylaxis. She has no history of DVT or PE. We will discontinue the ibuprofen and use Toradol IVP for pain today in addition to Dr. Villegas's pain medication orders. (2) Hypertension Status: Chronic Assessment & Plan: She is on chronic treatment with Lisinopril. This has been restarted with hold parameters. (3) Hypothyroidism Status: Chronic Assessment & Plan: She is on chronic treatment with Levothyroxine. (4) COPD (chronic obstructive pulmonary disease) Status: Chronic Assessment & Plan: She wears oxygen at night. (5) Glaucoma Status: Chronic Assessment & Plan: She is on chronic treatment with Timolol and Lumigan daily. Exam Sepsis Risk: No Definite Risk Problem Qualifiers (1) Hypertension: Hypertension type: essential hypertension Qualified Codes: I10 - Essential (primary) hypertension CORNELL GONZALEZ CUTTER FIRST May 02, 2018 09:59
[2018-05-02] MEDS ORDERED: ONDANSETRON 4 MG ODT TABDP SL PRN (13:50)
[2018-05-02] MEDS: BIMATOPROST 2.5 ML BTL 2.5 ML BTL OP SCH (20:31)
[2018-05-02] MEDS: LISINOPRIL 20 MG TAB PO SCH (21:00)
[2018-05-03] MEDS: KETOROLAC 15 MG/ML VIAL IVP SCH ×2 (02:02→08:49)
[2018-05-03 02:10] VITALS: BP 156/92
[2018-05-03] MEDS: LEVOTHYROXINE SOD 0.075 MG TAB PO SCH (05:45)
[2018-05-03 07:16] VITALS: BP 152/84
[2018-05-03] MEDS ORDERED: HYDR-654 PO (07:59)
[2018-05-03] MEDS ORDERED: DIA5 PO (08:04)
[2018-05-03] MEDS ORDERED: PROM-110 PO (08:05)
[2018-05-03] MEDS ORDERED: ONDANSETRON 4 MG/2 ML VIAL IVP ONE (08:40)
[2018-05-03] MEDS ORDERED: ONDA4TAB9 PO (08:43)
[2018-05-03] MEDS: TIMOLOL MALEATE OP SCH (08:47)
[2018-05-03] MEDS: ASPIRIN 81 MG ENTERIC COATED PO SCH (08:49)
--- NOTE | 2018-05-03 09:20 | Hospitalist Progress Note ---
Subjective Progress Notes Subjective She has complaints of nausea. She would like to go home today. Patient Complains of: Cardiovascular: No: Chest Pain Respiratory: No: Shortness of Breath Physical Exam Vital Signs Date Time Temp Pulse Resp B/P (MAP) Pulse Ox O2 Delivery O2 Flow Rate FiO2 05/03/18 08:28 85 05/03/18 07:16 98.5 88 12 152/84 (106) Nasal Cannula 2.0 Intake and Output 05/03/18 07:00 Intake Total 600 ml Output Total 202 ml Balance 398 ml Intake Oral 600 ml Output Emesis 2 ml Oral Regurgitation 200 ml # Voids 6 # Bowel Movements 1 General Appearance: Alert, Awake, No Acute Distress, Afebrile Neuro: No Gross deficits Cardiovascular: Regular Rate and Rhythm Respiratory: No Respiratory Distress, Clear to Auscultation GI: Soft and Non-Tender Psych: Alert & Oriented X3, Appropriate Mood & Affect Result Diagram: 05/02/18 0611 05/02/18 0534 Assessment and Plan Problems: (1) Status post right knee replacement Status: Acute Assessment & Plan: She will be placed on Aspirin for DVT prophylaxis. She has no history of DVT or PE. She will be sent home with Zofran for nausea, recommended she not use Phenergan secondary to glaucoma. (2) Hypertension Status: Chronic Assessment & Plan: She is on chronic treatment with Lisinopril. This has been restarted with hold parameters. (3) Hypothyroidism Status: Chronic Assessment & Plan: She is on chronic treatment with Levothyroxine. (4) COPD (chronic obstructive pulmonary disease) Status: Chronic Assessment & Plan: She wears oxygen at night. (5) Glaucoma Status: Chronic Assessment & Plan: She is on chronic treatment with Timolol and Lumigan daily. Exam Sepsis Risk: No Definite Risk Problem Qualifiers (1) Hypertension: Hypertension type: essential hypertension Qualified Codes: I10 - Essential (primary) hypertension CORNELL GONZALEZP May 03, 2018 09:20
[2018-05-03] MEDS: DIAZEPAM 5 MG TAB PO PRN (10:19)
== END 2018-05-03 10:30 | disposition home or self-care (01) | DRG 470 ==
LOC: OR 01:26 → MED 16:40
PROVIDERS: ADMIT Orthopaedic Surgery; ATTEND Orthopaedic Surgery
PROC: 0SRC0J9 Replacement of Right Knee Joint with Synthetic Substitute, Cemented, Open Approach (ICD-10-PCS; principal; 2018-04-30 13:16)
DX: M17.11 Unilateral primary osteoarthritis, right knee (principal); I10 Essential (primary) hypertension; T40.2X5A Adverse effect of other opioids, initial encounter; Z96.652 Presence of left artificial knee joint; Z96.641 Presence of right artificial hip joint; J44.9 Chronic obstructive pulmonary disease, unspecified; E03.9 Hypothyroidism, unspecified; H40.9 Unspecified glaucoma; Y92.230 Patient room in hospital as the place of occurrence of the external cause; Z99.81 Dependence on supplemental oxygen; Z88.2 Allergy status to sulfonamides; Z88.0 Allergy status to penicillin
CPT/HCPCS: 36415; 36416; 82040; 82247; 82310; 82374; 82435; 82565; 82947; 82948; 84075; 84132; 84155; 84295; 84450; 84460; 84484; 84520; 85025; 85610; 86850; 86900; 86901; 93005; 97161; A9270; C1713; C1776; J1100; J1885; J2001; J2250; J2270; J2405; J2550; J2704; J3010; J3370; J3490; J7030; J7040; J7060; J8501; S0119